=== PATIENT | male | born 1995 | race Caucasian/White ===

== ENCOUNTER 2017-10-25 17:25 | Inpatient (IN) | payer BC ==
[~2017-10-25] VITALS: Ht 175.3 cm; Wt 122.0 kg
--- NOTE | ~2017-10-25 | DS ---
[facility] [address], [place] [address] Draft ADMISSION DATE: 10/25/2017 DISCHARGE DATE: 11/02/2017 FINAL DIAGNOSIS: Acutely ruptured and necrotic appendicitis. PROCEDURE: Laparoscopic converted to open appendectomy (prolonged and difficult). HISTORY OF PRESENT ILLNESS: Aditya is a 22-year-old gentleman from the [facility] area. He traveled over to [place], [place] with some friends for the week. On his way back, he had been feeling bad for about 5 days. He told his friend he just could not make it the additional 3 hours home to [place]. They brought him into our local emergency room here in [place], [place]. Aditya was seen in the emergency room and found to have a retrocecal appendix with the tip of the appendix up near the edge of the liver. He was admitted and hydrated, given pain control and antibiotics. HOSPITAL COURSE: I met with Aditya that following morning and explained to him the location and function of the appendix. His parents had driven during the night to come over from [place]. I explained to Aditya more than likely he would be an open appendectomy given the retrocecal position. Also, because he had been sick for 5 days, I told Aditya to anticipate being in the hospital anywhere from 5-10 days. He went to the operating room that same day for laparoscopic converted to an open appendectomy and indeed it was a prolonged and difficult case. He had a ruptured necrotic appendix in the center of his appendix. We kept him in the hospital on IV fluids and antibiotics. Over several days then his temperature spikes finally went away. He was initially tachycardic and that resolved over a few days and he started to look and feel better and his appetite started to return. He was having small amounts of flatus, but over with clear liquids, he was still having some nausea and several times he vomited. I had to be out of town on that Sunday and in my absence, Dr. Jin was able to see him. By then, he was doing much better, tolerating his liquid diet. He had several bowel movements and was markedly improved. Consequently, Dr. Jin had discharged him to home. DISCHARGE PLANS AND MEDICATIONS: Aditya is going to go back to the [facility] to be with his parents and family. He could follow a diet as tolerated. He can perform his activities of daily living including walking up and down stairs and showering bathing as usual. He should not do PATIENT NAME: ADITYA BERNARD DISCHARGE SUMMARY DATE OF : 95 REPORT #: [id number] PHYSICIAN: MAURISIO SANTAMARIA MD PCP: NO PRIMARY CARE PHYSICIAN REPORT IS CONFIDENTIAL AND NOT TO BE RELEASED WITHOUT AUTHORIZATION [facility] [address] [place] [id number] [place] any heavy pushing, pulling, or lifting over 25 pounds. He does have kaz in place and he will need their family physician or an urgent care clinic or someone in that area to remove those kza. He is welcome to come back and see me in my office, but it is 3 hours away. Any pain medication he was given, was written by Dr. Jin. I had actually discussed this with Aditya and his family multiple days I was going to be gone that Sunday. They had expressed understanding and they had a very good grasp of their situation and wished to proceed as above. MD JIM Marie/DIANELYS /[id number] Copies: ~ PATIENT NAME: ADITYA BERNARD DISCHARGE SUMMARY DATE OF : 95 REPORT #: [id number] PHYSICIAN: MAURISIO SANTAMARIA MD PCP: NO PRIMARY CARE PHYSICIAN REPORT IS CONFIDENTIAL AND NOT TO BE RELEASED WITHOUT AUTHORIZATION
--- NOTE | 2017-10-25 20:37 | NUR ---
PT ARRIVED AT 2010 FROM ED VIA STRETCHER, COOPERATIVE WITH ASSESSMENTS, TOLERATING POPSICLES WELL, NO N/V NO C/O ABD PAIN
--- NOTE | 2017-10-25 21:28 | NUR ---
C/O 7-11/02 ABD PAIN, MEDICATED WITH 0.6MG IV DILAUDID. NO N/V
--- NOTE | 2017-10-26 00:37 | NUR ---
RESTING, EYES CLOSED, NO FURTHER C/O PAIN. NPO FOR AM PROCEDURE
--- NOTE | 2017-10-26 01:39 | NUR ---
0116 - DR SANTAMARIA NOTIFIED VIA PHONE ABOUT PTS TEMP 99.6 ORALLY, [id number] BY MONITOR AND APICAL, R 20, O2 SATS 94% ON ROOM AIR AND PT HAS BEEN SLEEPING WITH HIS HEAD IN A 45 DEGREES, BP 156/112 RIGHT ARM. VITALS RECHECKED LATER AND BP WAS 157/89 P 133 R LEG, 2 COVERS REMOVED, IS GIVEN, PT NPO. NEW ORDERS FOR TYLENOL PO/SUPP FOR FEVER >38.5 AND A 1000CC LITER BOLUS OVER 2H. PT DENIES CP OR SOB, WAS MEDICATED AT THAT TIME FOR C/O ABD PAIN. VOIDED LIGHT BETTY URINE. PARENTS IN ROOM.
--- NOTE | 2017-10-26 03:46 | NUR ---
P119, R20, WORKING ON IS, PT C/O ABD PAIN 12/03. MEDICATED WITH DILAUDID 0.5MG IV. NO N/V, NPO FOR AM PROCEDURE. PARENTS IN ROOM.
--- NOTE | 2017-10-26 05:51 | NUR ---
medicated with Dilaudid 0.5mg IV c.o 6.10 abd pain m dry heaving, will medicate with Zofran 4mg iv
--- NOTE | 2017-10-26 06:13 | NUR ---
PT CURRENTLY AWAKE VISITING WITH PARENTS, DR SANTAMARIA IN ROOM EXAMINING PT. PATIENT HAS BEEN MEDICATED WITH DILAUDID IV Q2-3 HRS SINCE ADMISSION. C/O ABD PAIN WITH GOOD PAIN RELIEF. WAS MEDICATED WITH ZOFRAN EARLIER THIS AM FOR DRY HEAVING, NO N/V, MED EFFECTIVE. HAS VOIDED QS LIGHT BETTY URINE. HAS BEEN NPO SINCE MIDNIGHT. EARLIER THIS AM HAD A TEMP OF 99.6, COVERS REMOVED, TEMP DOWN TO 98.2. TACHYCHARDIC EPISODE, HR BETWEEN 135-140, CURRENTLY DOWN TO 112, BP WAS ELEVATED 156/112, CURRENT BP LOWER NOW, DENIED HERNANDEZ OR LIGHTHEADNESS. RECEIVED 1L BOLUS OF LR, NO ADVERSE REACTION TO ABX. PREOP INSTRUCTIONS FOR POSSIBLE LAP APPY GIVEN, PT STATED UNDERSTANDING
--- NOTE | 2017-10-26 07:30 | NUR ---
PATIENT UP TO THE BATHROOM AND WIPES DONE FOR SURGERY, SCD'S ON AND PATIENT READY FOR SURGERY. HE STATES THAT PAIN IS CURRENTLY TOLERABLE. PARENTS ARE AT BEDSIDE AND DENY ANY QUESTIONS OR CONCERNS.
--- NOTE | 2017-10-26 07:42 | NUR ---
PATIENT TO SURGERY AT THIS TIME VIA STRETCHER
--- NOTE | 2017-10-26 10:04 | NUR ---
pt is currently in surgery, will take vitals upon return. bed linens have been changed
--- NOTE | 2017-10-26 11:14 | NUR ---
10/26/17 1114 Ike Leyva 1054 PT ARRIVES TO PACU, AWAKE ON AND OFF. NOTED SINUS TACHYCARDIA, TACHYCARDIA ALSO REPORTED BY CHEMICAL PROCESS EQUIPMENT OPERATOR DURING CASE. PT DENIES PAIN AND NAUSEA. PT ABLE TO MOVE ALL EXTREMITIES. DRSG C,D,I. JAIMES IN PLACE. IV ABX RESTARTED FROM TRANSFER. 1100 02 DECREASED TO 4L VIA NC. IV DISTAL OCCLUSION, 2ND RN AT BEDSIDE TO RESTART IV. PT TOLERATING WELL. PT C/O BEING TOO HOT, COOL AIR IN PLACE.
--- NOTE | 2017-10-26 12:25 | NUR ---
PATIENT ARRIVED BACK FROM PACU, HE IS ON RA WITH NO C/O SOB. HE DENIES ANY PAIN AT THIS TIME AND HAS AN ABDOMINAL DRESSING THAT IS CDI WITH AN ABD AND TAPE. PATIENT'S RAILS UP X4 AND IV FLUID BACK ON PUMP TUBING. VITALS TAKEN AT THIS TIME AND PARENTS BACK IN THE ROOM WITH THE PATIENT.
--- NOTE | 2017-10-26 12:56 | CONS ---
[facility] [address] [place], [place] [address] Signed DATE OF CONSULTATION: 10/26/2017 CHIEF COMPLAINT: Epigastric abdominal pain. HISTORY OF PRESENT ILLNESS: Aditya is a 22-year-old gentleman, who lives in the [place], [place] area. 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 He had some friends, who have been over in [place] to visit some of their associates. He had been feeling some epigastric abdominal pain about 5 days ago. It seemed to wax and wane, but overall was getting worse. It seemed to be localizing more to the right side. On the way back to [place], he just felt he could not make it, so his friends brought him in to our local emergency room here in [place], [place]. Here, he was tender in the right side with an elevated white count and a specific gravity that was a little bit high on his urine, his ketones were up a little bit as well. Therefore, he had a CT scan of the abdomen and pelvis performed and he has a very thickened appendix starting in the right lower quadrant, but it extends up the medial side of the right colon with the tip all the way up next to the liver. He has a stone about midway in the appendix. The appendix was quite thickened and fluid-filled with some periappendiceal inflammation. Consequently, I was asked to admit him last night as a general surgeon on-call. In the meantime, he has received antibiotics, IV fluids, and pain control. Overall, he is feeling a little better. In the meantime, his parents were able to drive over from [place] and they have been here since about 4 in the morning. PAST MEDICAL HISTORY: Asthma as a child, for which he was mostly outgrown. PAST SURGICAL HISTORY: Left shoulder labrum repair. SOCIAL HISTORY: He does not smoke. He drinks socially. He does use some marijuana. 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 He has no primary care provider. His mother is Renetta Bernard at [phone]. They use the [facility] on [address] at [place] in [place], [place]. FAMILY HISTORY: Dad has sleep apnea. Mom is overweight. REVIEW OF SYSTEMS: Aditya had 10 systems reviewed. We talked about his asthma and then the shoulder. ALLERGIES: Electronically Signed By: MAURISIO SANTAMARIA MD 10/26/17 1256 PATIENT NAME: ADITYA BERNARD CONSULTATION DATE OF : 95 REPORT #: [id number] PHYSICIAN: MAURISIO SANTAMARIA MD PCP: NO PRIMARY CARE PHYSICIAN REPORT IS CONFIDENTIAL AND NOT TO BE RELEASED WITHOUT AUTHORIZATION [facility] [address], [place] [address] Signed Penicillin. MEDICATIONS: Albuterol p.r.n. PHYSICAL EXAMINATION: VITAL SIGNS: His blood pressure is 148/85, his heart rate is 115, respiration 16, his temperature is 98.2 degrees. He is 93% on room air. He is 5 feet 9 inches at 122 kg. GENERAL: Aditya is a 22-year-old young man, lying supine in his hospital bed. His parents are in the room. He does not appear systemically ill or toxic. LUNGS: Generally clear to auscultation bilaterally. HEART: Little tachycardic. ABDOMEN: Obese, but soft. He just received some Dilaudid little while ago, so he has just minimal tenderness on the right side. LABORATORY DATA: His white blood cell count is 22, his neutrophil is 88, bands are 4, hemoglobin is 15. BUN 14, creatinine 1.0. Liver function tests are negative. Albumin is 4.5. His amylase is negative. His urine specific gravity is slightly up at 1.029. He also had some ketones in the urine. RADIOGRAPHIC STUDIES: A CT scan of the abdomen and pelvis is reviewed, both the images and the report. He clearly has a very long thickened appendix, probably 12 cm long at least couple centimeters wide. It is fluid-filled. There was a stone in the midportion with some periappendiceal inflammation. ASSESSMENT AND PLAN: Aditya is a 22-year-old gentleman, who presents with appendicitis. He has been admitted, given IV fluids, antibiotics, and resuscitated in general. I explained to Aditya the findings as well as the location and function of the appendix. We have discussed laparoscopic versus open appendectomy. I have also reviewed the expected intraop and postop course. Given the fact he has been sick for 5 days, we will see how this surgery goes and it may get converted to an open. In addition, we did review the risks including, but not limited to bleeding, infection, scarring, change in contour of the skin, damage to bowel, appendiceal stump leak, postoperative intraabdominal abscess, incisional hernias, and other unforeseen comorbidities. He had expressed understanding and wishes to proceed. Maurisio Santamaria MD Electronically Signed By: MAURISIO SANTAMARIA MD 10/26/17 1256 PATIENT NAME: ADITYA BERNARD CONSULTATION DATE OF : 95 REPORT #: [id number] PHYSICIAN: MAURISIO SANTAMARIA MD PCP: NO PRIMARY CARE PHYSICIAN REPORT IS CONFIDENTIAL AND NOT TO BE RELEASED WITHOUT AUTHORIZATION [address] [place] [address] Signed [facility]/MODL /[id number] cc: Maurisio Santamaria MD Copies: MAURISIO SANTAMARIA MD ~ Electronically Signed By: MAURISIO SANTAMARIA MD 10/26/17 1256 PATIENT NAME: ADITYA BERNARD CONSULTATION DATE OF : 95 REPORT #: [id number] PHYSICIAN: MAURISIO SANTAMARIA MD PCP: NO PRIMARY CARE PHYSICIAN REPORT IS CONFIDENTIAL AND NOT TO BE RELEASED WITHOUT AUTHORIZATION
[2017-10-26] MEDS ORDERED: AMPHETAMINE SAL10 MG PO (12:57)
--- NOTE | 2017-10-26 13:17 | NUR ---
PATIENT TOLERATING SIPS OF WATER, 2ND SET OF POST OP VITALS COMPLETE. PATIENT HAS NO C/O PAIN AT THIS TIME.
--- NOTE | 2017-10-26 13:43 | NUR ---
PT BACK FROM SURGERY, IN BED MOSTLY AWAKE ABLE TO CARRY ON CONVERSATION. HIS PARENTS IN RM UP FROM [place]. EXTENDED A BLESSING, PT THANKED ME FOR VISITING. WILL CONTINUE TO FOLLOW NEEDED
--- NOTE | 2017-10-26 14:15 | NUR ---
SPOKE WITH PATIENT AND PARENTS IN ROOM. PATIENT IS POST-OP, FALLS ASLEEP EASILY. PARENTS ANSWERED MOST QUESTIONS. PATIENT LIVES IN [place], WAS HERE WITH FRIENDS WHEN HE FELT ILL. STATES THEY ARE STAYING HERE UNTIL HIS DISCHARGE AND THEY WILL DRIVE HIM BACK TO [place]. HE WILL STAY WITH THEM UNTIL HE IS READY TO RETURN TO HIS PLACE. HE HAS A PCP IN [place]. DISCUSSED NORMAL POST-OP COURSE. THEY STATE UNDERSTANDING. NO KNOWN BARRIERS AT THIS TIME TO DISCHARGE WITH PARENTS.
--- NOTE | 2017-10-26 14:20 | NUR ---
PATIENT C/O 5/10 ABDOMINAL PAIN AT THIS TIME, PATIENT GIVEN 1MG OF DILAUDID IV NOW AND ASSISTED UP TO THE BATHROOM TO VOID, PATIENT ABLE TO VOID WITHOUT ANY DIFFICULTIES MISSING THE HAT.
--- NOTE | 2017-10-26 15:28 | NUR ---
PATIENT'S LAST SET OF SURGERY VITALS COMPLETED AT THIS TIME, PATIENT DENIES ANY PAIN AT THIS TIME AND HAS BEEN RESTING IN BED. HE DENIES ANY NEEDS AT THIS TIME HAS NO C/O SOB. DRESSINGS TO ABDOMEN ARE INTACT AND NO DRAINAGE NOTED.
--- NOTE | 2017-10-26 15:35 | NUR ---
PATIENT ADVANCED TO A FULL LIQUID DIET AT THIS TIME, DOCTOR ROSALIO UPDATED ON PATIENT STATUS AND THAT SHE HAS PASSED GAS. DRESSINGS X4 TO ABDOMEN INTACT.
--- NOTE | 2017-10-26 15:49 | OR ---
[facility] [address] [place], [place] [address] Signed DATE OF OPERATION: 10/26/2017 SURGEON: Maurisio Santamaria MD PREOPERATIVE DIAGNOSIS: Acute appendicitis. POSTOPERATIVE DIAGNOSIS: Acute ruptured and necrotic appendicitis. PROCEDURE PERFORMED: Laparoscopic converted to open appendectomy (prolonged and difficult at approximately 2 hours). ESTIMATED BLOOD LOSS: Minimal. FINDINGS: Aditya had a retrocecal appendix consistent with his CT scan findings. Indeed, tip of the appendix was next to the liver's edge. It was necrotic and ruptured in midportion and there was an appendicolith present. In some cases, we can mobilize the entire right colon laparoscopically and access the retrocecal appendix. However, on this occasion, it was not possible due to body habitus. We therefore converted to a periumbilical midline incision with an additional nurse scrubbed in to help hold retractors and we were able to follow the appendix retrograde all the way up to the tip and very carefully removed it from the surrounding mesoappendix with the help of a cautery because it was so inflamed that the blood vessels I am sure were thrombosed. INDICATIONS FOR PROCEDURE: Aditya is a 22-year-old young man, who lives in the [place], [place] area. He and some friends have been over to [facility]. They were on the way back and Aditya said he had been feeling ill for about 5 days. He had a lot of periumbilical and epigastric abdominal pain. There was some nausea, vomiting, diarrhea. He said he just did not feel he could make it all the way back to [place], so his friends brought him into our local emergency room here in [place], [place]. In the emergency room, he was tender in the upper abdomen and white count was elevated at 22,000. Liver function tests were fine. Amylase fine. He had some elevated ketones and slightly elevated urine specific gravity. Consequently, he had a CT scan of the abdomen and pelvis performed. The CT scan showed very thickened appendix, probably 2 cm wide and about 12 cm long. There was fluid in the appendix and there was periappendiceal inflammation. It seemed to be in Electronically Signed By: MAURISIO SANTAMARIA MD 10/26/17 1549 PATIENT NAME: ADITYA BERNARD OPERATIVE REPORT DATE OF : 95 REPORT #: [id number] PHYSICIAN: MAURISIO SANTAMARIA MD PCP: NO PRIMARY CARE PHYSICIAN REPORT IS CONFIDENTIAL AND NOT TO BE RELEASED WITHOUT AUTHORIZATION [facility] [address] [place], [place] [address] Signed the retrocecal position with the tip near the liver edge. There was an appendicolith in the midportion of the appendix. I was asked to admit Aditya overnight as a general surgeon on-call. He had received IV fluids, pain control, and antibiotics. In the morning, I had met with Aditya and his mother and father, who drove over in the middle of the night to be here this morning. We had a long discussion regarding his findings along with the usual position of the appendix along with the usual function of the appendix. We had discussed laparoscopic versus open appendectomy. He is very aware that 97% of time we can do them laparoscopically. However, I warned them given his 5 days of symptoms plus the CT scan findings that he had a high likelihood of being converted to an open procedure. We also discussed the expected postoperative course. They are aware of the risk including, but are not limited to bleeding, infection, scarring, change in contour of the skin, damage to bowel, appendiceal stump leak, postoperative intraabdominal abscess, incisional hernias, and other unforeseen comorbidities. Aditya had expressed understanding and wished to proceed. PROCEDURE NOTE: Aditya was taken into our operating room and placed in the supine position under general endotracheal tube anesthesia. He was on preoperative antibiotics along with subcutaneous heparin. SCDs were utilized. Florian catheter was inserted with return of clear yellow urine. He was then prepped and draped in the usual sterile fashion. We placed our Uli trocar through a standard vertical supraumbilical incision and as we looked around the abdomen, he had quite a bit of adipose tissue and not a lot of space between the abdominal wall, his omentum, his intestine, and his liver. We went ahead and placed our suprapubic 5-mm trocar as well as our 10/12 mm trocar in the right upper quadrant. We took few minutes and worked our way down the anterior taenia coli of the right colon. We went past the terminal ileum and we did visualize the base of the appendix, which was healthy, but it did travel retrocecal. We made some efforts to see if we could mobilize the right colon and it was simply beyond reasonable to do that laparoscopically. Consequently, we aborted our laparoscopic case and converted to an open incision. We made a standard periumbilical midline incision knowing we are going to have to travel cephalad towards the hepatic flexure in order to remove that appendix. In due time, I had to extend that incision about 3 cm or so cephalad in order to ultimately reach the tip of the appendix. Once we had the incision developed sharply with our cautery, we had an additional nurse scrub in, we used large Molina retractors and later [place] with moist gauze to hold the small bowel out of the way. Unfortunately, he had a fairly mobile cecum. We were able to bring that up into the incision and we divided the base of the appendix from the cecum between Pean clamps and #0 Vicryl ties. The appendiceal stump was gently cauterized. After this, we worked our way in a retrocecal fashion up towards the hepatic flexure and I could feel the tip of the appendix up underneath the hepatic flexure. We very carefully and slowly followed the base of the appendix with the cautery and we held ourself close to the appendix and used the cautery to follow the appendix all the way up past the area where it was Electronically Signed By: MAURISIO SANTAMARIA MD 10/26/17 1549 PATIENT NAME: ADITYA BERNARD OPERATIVE REPORT DATE OF : 95 REPORT #: [id number] PHYSICIAN: MAURISIO SANTAMARIA MD PCP: NO PRIMARY CARE PHYSICIAN REPORT IS CONFIDENTIAL AND NOT TO BE RELEASED WITHOUT AUTHORIZATION [facility] [address] [place], [place] [address] Signed necrotic and ruptured, ultimately to the tip. It was quite difficult and took a significant amount of time, but in the end, we were very confident that the entire appendix was removed all the way to the tip. It left a channel and the fat underneath. Once we were done; however, it was quite hemostatic, the area was copiously irrigated and suctioned out until clear. We did not feel a drain was necessary at that time. We went ahead and removed all of our moist laps, brought the small bowel down into the pelvis and let the right colon set back over into the right gutter. We had copiously irrigated both behind and in front of the right colon with warm antibiotic saline solution. After this, the small bowel was allowed to come over from the left side of the abdomen to the right and we covered that with the omentum. We then closed the midline fascia with multiple interrupted [id number] #1 PDS sutures and again, that took additional time and effort due to the subcutaneous adipose tissue. After this, we injected local anesthetic into his incision as well as the trocar sites. We had initially used our laparoscopic suturing device to close the fascia of the right subcostal 10/12 mm trocar site with good effect. After injecting local anesthetic into the incisions, they were irrigated and suctioned out until clear. The dermis of each incision was closed with multiple interrupted #3-0 subcuticular Monocryl sutures. The skin edges were reapproximated with kaz. Dry gauze and tape were then applied. Aditya's Florian catheter was left in place. He was awakened from his anesthesia, extubated in the OR, and taken to recovery room in stable condition. Maurisio Santamaria MD [facility]/MODL /[id number] cc: Maurisio Santamaria MD Copies: MAURISIO SANTAMARIA MD ~ Electronically Signed By: MAURISIO SANTAMARIA MD 10/26/17 1549 PATIENT NAME: ADITYA BERNARD OPERATIVE REPORT DATE OF : 95 REPORT #: [id number] PHYSICIAN: MAURISIO SANTAMARIA MD PCP: NO PRIMARY CARE PHYSICIAN REPORT IS CONFIDENTIAL AND NOT TO BE RELEASED WITHOUT AUTHORIZATION
--- NOTE | 2017-10-26 17:10 | NUR ---
PATIENT C/O ABDOMINAL PAIN 07/03, PATIENT GIVEN 1MG OF DILAUDID IV AT THIS TIME.
--- NOTE | 2017-10-26 17:54 | NUR ---
PATIENT RESTING WITH EYES CLOSED. RESPIRATIONS EVEN UNLABORED AT THIS TIME. PATIENT REMAINS ON RA WITH O2 SATURATIONS AT 98%
--- NOTE | 2017-10-26 18:12 | NUR ---
pt is resting in bed safely with call light in reach. pt did not need anything at the moment
--- NOTE | 2017-10-26 19:05 | NUR ---
BEDSIDE REPORT RECEIVED FROM OFFGOING RN. PT ASSISTED TO BATHROOM AND BACK TO BED. PT REPORTS BEING COLD. WARM BLANKET PROVIDED. PT DENIES OTHER NEEDS AT THIS TIME. CALL LIGHT WITHIN REACH.
--- NOTE | 2017-10-26 21:00 | NUR ---
PT ASSESSMENT COMPLETE. PT STATES THAT PAIN IS WELL CONTROLLED WITH PAIN MEDICATION AT THIS TIME. DRESSING TO ABD C/D/I. BT'S HYPOACTIVE, ABD TENDER TO PALPATION. PT DENIES PASSING FLATUS. PT PROVIDED WITH WATER FOR 8 HOURS. PT DENIES OTHER NEEDS AT THIS TIME. CALL LIGHT WITHIN REACH, PARENTS AT BEDSIDE.
--- NOTE | 2017-10-26 22:00 | NUR ---
VITALS AND I&OS DONE AND CHARTED. LET HIS RN LES KNOW OF B/P AND HEART RATE. BEDSIDE TABLE AND CALL LIGHT WITHIN REACH.
--- NOTE | 2017-10-26 22:41 | NUR ---
MEDICATED WITH DILAUDID 0.3MG PO C/O ABD PAIN
--- NOTE | 2017-10-27 00:30 | NUR ---
PT RESTING WITH EYES CLOSED. RESPIRATIONS EVEN AND UNLABORED. PT APPEARS TO BE SLEEPING. CALL LIGHT WITHIN REACH.
--- NOTE | 2017-10-27 01:34 | NUR ---
PT UTILIZES CALL LIGHT, REQUETS TO USE BATHROOM. PT ASSISTED TO BR AND BACK TO BED. PT RATES PAIN 7.5-9. PRN DILAUDID 1 MG ADMINISTERED. PT STATES THAT HE CAN FEEL THEMEDICATION WORKING. NEW ICE PACK PROVIDED. PT DENIES FURTHER NEEDS AT THIS TIME. CALL LIGHT WITHIN REACH.
--- NOTE | 2017-10-27 03:27 | NUR ---
CALL LIGHT ANSWERED, PRN PAIN MEDICATION ADMINISTERED FOR PT REPORTED 7/10 PAIN IN ABD. NO ADDL REQUESTS AT THIS TIME, CALL LIGHT IN REACH.
--- NOTE | 2017-10-27 04:15 | NUR ---
PT UTILIZES CALL LIGHT, REQUESTS MORE WATER. STATES THAT PAIN IS WELL CONTROLLED BY LATEST PRN DILAUDID DOSE. PT DENIES NAUSEA, SOB. PT DEMONSTRATES DEEP BREATHING APPROPRIATELY. PT ASSESSMENT COMPLETE. DRESSING TO ABD C/D/I, BT'S HYPOACTIVE. PT CONTINUES TO REPORT TENDERNESS UPON PALPATION. ABD FIRM. PT DENIES OTHER NEEDS AT THIS TIME. CALL LIGHT WITHIN REACH.
--- NOTE | 2017-10-27 05:43 | NUR ---
medicated wtih dilaudid 1mg iv c/o 8-12/03 abd pain. working IS. no other requests
--- NOTE | 2017-10-27 06:36 | NUR ---
PT RESTING IN BED WITH EYES CLOSED AFTER LAST DOSE OF PAIN MEDICATION. RESPIRATIONS EVEN AND UNLABORED. NO S/SX OF DISTRESS NOTED. PT APPEARS TO BE SLEEPING. PT DOES NOT WAKE WHILE OFFICE CORRESPONDENT AT BEDSIDE.
--- NOTE | 2017-10-27 07:05 | NUR ---
REPORT RC'D FROM FIRE PROTECTION EQUIPMENT TECHNICIAN NURSE. PT RESTING IN BED AND REQUESTING PAIN MEDICATION FOR PAIN 11/02. IV DILAUDID TO ELISA GIVEN. DENIES OTHER NEEDS. CALL LIGHT WITHIN REACH.
--- NOTE | 2017-10-27 08:00 | NUR ---
PT RESTING IN BED COMFORTABLY, 5/10 AFTER 1MG DILAUDID. PT A&O X3 AND RESPONDING APPROPRIATLY. PT NOTED TO BE TACHYCARDIC. RESPIRATIONS EVEN AND UNLABORED, LUNG SOUNDS CLEAR THROUGHOUT, NO COUGH. ABD MILDLY DISTENDED, FIRM, TENDER TO PALPATION, MIDLINE SITE COVERED, C/D/I. PT REPORTS NO BM OR PASSING FLATULENCE, DUE TO VOID. SCD IN PLACE. IV SITE PATENT, WNL. MORPHINE SENIOR QUALITY METHODS SPECIALIST TO BE STARTED PER PROVIDER. PT DUE TO AMBULATE, HAVE DRESSING REMOVED, AND SHOWER.
--- NOTE | 2017-10-27 09:30 | NUR ---
MORPHINE JUMP IRON MACHINE PRESSER STARTED AT THI TIME. EDUCATION PROVIDED ON USE AND SIDE EFFECTS. ALL QUESTIONS ANSWERED. PT VERBALIZED UNDERSTANDING OF USE AND SIDE EFFECTS. CURRENT PAIN 10/02. JUMP IRON MACHINE PRESSER BUTTON WITHIN REACH. CALL LIGHT WITHIN REACH. WILL CONTINUE TO MONITOR.
--- NOTE | 2017-10-27 11:24 | NUR ---
pt is resting in bed safely with call light in reach. nurse is in room with pt starting an IV
[2017-10-27] MEDS ORDERED: OMEGA 3 FISH O1 EACH PO (11:57)
--- NOTE | 2017-10-27 12:00 | NUR ---
NO ACUTE CAHNGES. PT REPORTS PAIN CONSISTANTLY 5/10 WITH REBAR WORKER USE. PROVIDER NOTIFIED. PER DR. SANTAMARIA, 1-2 MG ATIVAN QP6 NEEDED FOR AGGITATION OR ANXIETY. EDUCATION PROVIDED ON REBAR WORKER USE AND NEW MEDICATION USE AND POSSIBLE SIDE EFFECTS, PT VERBALIZED UNDERSTANDING, ALL QUESTIONS ANSWERED. WILL CONTINUE TO MONITOR. CONTINUOUS PULSE OX IN PLACE AND NOTED TO 95% ON ROOM AIR.
--- NOTE | 2017-10-27 12:01 | NUR ---
Med rec completed.
--- NOTE | 2017-10-27 12:21 | NUR ---
ICE PROVIDED TO PT. MIDLINE SURGICAL SITE OPEN TO AIR, CURT IN PLACE, WELL APPROXIMATED, NO REDNESS, WARMTH, DRAINAGE, OR EDEMA. PT DUE TO AMBULATE AND SHOWER.
--- NOTE | 2017-10-27 14:35 | NUR ---
PT TO AMBULATE IN HALLWAY AND HAVE A SHOWER.
--- NOTE | 2017-10-27 15:01 | NUR ---
PT AMBULATED HALLWAY W/O DIFFICULTY, SBA, TOLERATED WELL. DENIES LIGHTHEADEDNESS, DIZZINESS, FEELING UNSTEADY, OR ANY ADDITIONAL CONCERNS. PT ASSISTED TO SHOWER AT THIS TIME.
--- NOTE | 2017-10-27 17:53 | NUR ---
pt walked 4 laps around the hallway. pt is now in bed resting safely with call light in reach
--- NOTE | 2017-10-27 18:37 | NUR ---
PT CONTINUES TO BE ON 250 Q8H FLUID RESTRICTION. NO BM, NO FLATULENCE, VOIDING CONCENTRATED URINE, REPORTS DIFFICULTY STARTING STREAM, DENIES PAIN, BLADDER SCAN SHOWS NO RESIDUAL. PT A&O X3, RESPONDING APPROPRIATELY, PT REPORTS AGGITATION AT BASELINE, MONITOR FOR INCREASED ANXIETY, PRN ATIVAN NEEDED. PAIN MANAGEMENT ONGOING, MORPHINE ASSISTANT DIRECTOR OF FINANCIAL AID PUMP. IV ABX ORDERED. D5LR @100 ML/HR. MONITOR IV SITES FOR PATENCY. LUNGS SOUNDS CLEAR BUL AND DIMINISHED IN BLL, ENCOURAGE IS USE, PT UP TO CHAIR AND AMBULATING, TOLERATING WELL. DENIES NAUSEA, ABD MILDLY DISTENDED, FIRM, HYPOACTIVE BOWEL TONES, TENDER TO PALPATION, MIDLINE AND RIGHT ABDOMINAL SURGICAL SITE SUPERVISOR FUNCTIONAL TESTING, CURT IN PLACE, WELL APPROXIMATED, NO REDNESS, EDEMA, DRAINAGE, OR WARMTH. EDEMA NOTED IN BLE, SCDS IN PLACE.
--- NOTE | 2017-10-27 19:07 | NUR ---
REPORT RECEIVED FROM JAM ALARCON. PT RESTING IN BED STATES PAIN IS TOLERABLE. RR16 ,PT DENIES NAUSEA,VOMITING OR SOB. CALL LIGHT IN REACH AND FAMILY AT BEDSIDE.
--- NOTE | 2017-10-27 19:45 | NUR ---
PT RESTING IN BED CALL LIGHT IN REACH NO NEEDS VOICED, RR 16. PT DENIES SOB, NAUSEA/VOMITING AND STATES PAIN IS TOLERABLE.
--- NOTE | 2017-10-27 20:52 | NUR ---
fresh ice water provided pt agrees to sip slowly and is aware that this must last 8hrs. Call light in [facility] adn family at bedside. no further requests or concerns voiced at this time.
--- NOTE | 2017-10-27 21:45 | NUR ---
PT UP AMBULATING HALLS WITH STEADY GAIT AND STATES PAIN IS TOLERABLE. PT REPORTS IV LINE KINKING SO IV TUBING TAPED INTO POSITION TO KEEP LINE PATENT.
--- NOTE | 2017-10-27 22:50 | NUR ---
PT RESTING IN BED, EYES CLOSED, RR 16 PT APPEARS TO BE SLEEPING COMFORTABLY. SCD'S IN PLACE. CALL LIGHT IN REACH.
--- NOTE | 2017-10-27 23:45 | NUR ---
PT RESTING IN BED, EYES CLOSED, RR 16. PT APPEARS TO BE SLEEPING COMFORTABLY. CALL LIGHT IN REACH. SCD'S IN PLACE.
--- NOTE | 2017-10-28 00:45 | NUR ---
PT RESTING IN BED, ALERT TO VOICE, BT'S HYPOACTIVE PT DENIES NAUSEA VOMITING AND STATES PAIN IS TOLERABLE. CALL LIGHT IN REACH AND NO NEEDS/CONCERNS VOICED. PT WAS REMINDED TO ONLY USE COLOR CHECKER PUMP NEEDED FOR PAIN INCREASED USE CAN LEAD TO CONSTIPATION, PT VERBALIZED UNDERSTANDING.
--- NOTE | 2017-10-28 00:54 | NUR ---
V/S AND I&O DONE AND CHARTED.
--- NOTE | 2017-10-28 01:58 | NUR ---
pt resting in bed respirations even and unlabored. pt states "i'm starting to hurt again so i'm about to use the pain pump" GAME AGENT pump controler and call light in reach. Pt denies nausea,vomiting and states GAME AGENT has adonis managing pain well. RR 16.
--- NOTE | 2017-10-28 03:00 | NUR ---
Pt resting in bed, alert to voice and states pain is well tolorated with PRN EXTERIOR DOOR INSTALLER pump. pt encouraged to only press botton when pain is becoming intolerable. BT's have remained hypoactive and pt has not passed flatus this shift. Last bm on 10/25/17. pt is belching and denies nausea/vomiting. pt voiding dark yellow Q.S. urine. Pt tolorates 250mls of water q8hrs and states he would like to see his oral fluids increased. pt was up ambulating in halls earlier in shift and tolorated well with only one person stand by assist. pt has 2 IV's. 24 GA to left anterior wrist and 20 ga to Right posterior hand and continues iv antibiotics as scheduled. pt did desat to 90% on RA in night while sleeping so was placed on 1lpnc and maintained sats in mid 90's thereafter. incisions to abd remain dianna and well approximated with no s/sx's of infection.
--- NOTE | 2017-10-28 04:56 | NUR ---
PT RESTING IN BED ALERT TO VOICE, CALL LIGHT,H20 AND ASSISTANT MEN'S SOCCER COACH PUMP REMOTE IN REACH. PT STATES PAIN HAS BEEN WELL MANAGED WITH ASSISTANT MEN'S SOCCER COACH PUMP THROUGHOUT THE NIGHT. PT DENIES PASSING ANY FLATUS THIS SHIFT BUT ALSO DENIES NAUSEA/VOMITING. BT'S REMAIN HYPOACTIVE AND DISTANT/MUFFLED. PT AGREES TO INCREASE ACTIVITY TODAY TOLERABLE WITH STANDBY NURSE ASSIST.
--- NOTE | 2017-10-28 07:17 | NUR ---
PT IN BED. RECIEVED BEDSIDE REPORT FROM JAM SORENSON. PT'S ABDOMEN INCISION TO MIDLINE, SMALL INCISION TO RIGHT UPPER QUADRANT, AND TO SUPRAPUBIC AREA HAVE CURT INTACT, INCISIONS WNL.
--- NOTE | 2017-10-28 08:28 | NUR ---
PT SITTING UP IN RECLINER. RATES PAIN TO ABDOMEN 3/10. LUNNGS DIMINISHED THROUGHOUT, PT USING INSENTIVE SPIROMETER, EDUCATED REGARDING INSENTIVE SPIROMETER USE, DEEP BREATH AND COUGH. PT VERBALIZED UNDERSTANDING. ABDOMINAL INCISIONS WNL, NO DRAINAGE NOTED. BOWEL TONES HYPOACTIVE X 4 QUADRANTS. PT REPORTS THAT HE HAS NOT PASSED GAS SINCE SURGERY.
--- NOTE | 2017-10-28 08:39 | NUR ---
PT C/O NAUSEA. GAVE ZOFRAN 8 MG IV PRN.
--- NOTE | 2017-10-28 10:00 | NUR ---
PT AMBULATED IN HALLS, AROUND "LOOP" X 5, AMBULATED WITH HIS PARENTS. STEADY ON FEET.
--- NOTE | 2017-10-28 10:06 | NUR ---
patient walked with his parents and then called to be set up in his room, he wanted to be on oxygen and not wear the O2 sensor on because of the beeping, this INDUSTRIAL HEALTH AND SAFETY PROFESSOR reported the nurse will be in shortly to set him up with his IV and let him know about the oxygen
--- NOTE | 2017-10-28 10:30 | NUR ---
PUT O2 sensor back on patient and set him up for a rest before lunch
--- NOTE | 2017-10-28 11:07 | NUR ---
pt is sitting up with feet elevated and call light in reach. pt asked for an ice pack for abdomen. pt was concerned about IV site on wrist, Nurse Lindsay came and assessed it, and said it was stil WNL.
--- NOTE | 2017-10-28 12:22 | NUR ---
PT AMBULATING IN HALLS WITH HIS MOTHER. STEADY ON FEET, TOLERATING AMBULATION WELL.
--- NOTE | 2017-10-28 13:26 | NUR ---
PT SITTING UP IN RECLINER. RATED PAIN TO ABDOMEN 3/10. PINEAPPLE PLANTATION MANAGER CARTRIDGE REPLACED, PINEAPPLE PLANTATION MANAGER SETTINGS CHECKED BY SONIA Alcantar RN. PT DENIED NEEDS AT THIS TIME.
--- NOTE | 2017-10-28 14:36 | NUR ---
pt is reclining in chair with feet elevated and call light in reach. pt did not need anything at the moment
--- NOTE | 2017-10-28 15:02 | NUR ---
PT SITTING UP IN RECLINER WITH LEGS ELEVATED. SLEEPING SOUNDLY, ON 2L O2, OXYGEN SATURATION LEVEL 97%. PT AROUSED TO VERBAL STIMULI. RATED ABDOMINAL PAIN 2/10, DENIED NAUSEA. BOWEL TONES HYPOACTIVE, PT DENIES PASSING FLATUS.
--- NOTE | 2017-10-28 16:54 | NUR ---
pt showered with no assistance and only needed set up help. pt then returned to chair and is sitting up with call light in reach
--- NOTE | 2017-10-28 17:01 | NUR ---
PT SITTING UP IN BED, VISITING WITH SISTER, MOM, AND DAD. PERSONAL SUPPLIES AND CALL LIGHT IN REACH.
--- NOTE | 2017-10-28 18:19 | NUR ---
PT UP WITH STANDBY ASSIST FOR HELP WITH TUBES, SCDs, PULSE OX, THEN INDEPENDANT. PT AMBULATED IN HALLS, FAMILY MEMBER AT SIDE, TOLERATED WELL. PT TOOK SHOWER THIS SHIFT. HAS MORPHINE TEMPERING KILN TENDER, PT REPORTED THIS IS COVERING PAIN WELL. BOWEL TONES HYPOACITVE, PT DENIES PASSING FLATUS. LUNGS DIMINISHED, PT USED INSENTIVE SPIROMETER FREQUENTLY, AND DID DEEP BREATHING AND COUGHING THROUGHOUT SHIFT. PT ON CONTINUOUS PULSE OX, DESATURATED TO MID 80s WHEN ASLEEP, PLACED ON 2L 02 VIA NC WHEN SLEEPING. ON RA OTHERWISE. PT HAS D5LR INFUSING AT 100 CC/HR. PT NPO EXCEPT 250 CC CLEAR LIQUIDS Q 8 HOURS. PT DID HAVE ONE EPISODE OF NAUSEA THIS AM, RECIEVED PRN ZOFRAN, WHICH PT REPORTED RESOLVED THIS. MIDLINE INCISION AND SCOPE INCISIONS TO RUQ ABD, AND SUPRAPUBIC MIDLINE AREA WNL, CURT INTACT.
--- NOTE | 2017-10-28 18:37 | NUR ---
pt is resting in bed safely with call light in reach. pt asked for an ice pack
--- NOTE | 2017-10-28 20:30 | NUR ---
PT WAS UP DOING LAPS IN WALLACE WITH SLOW BUT STEADY GAIT. PT DENIES NAUSEA AND STATES PAIN IS TOLERABLE. 250MLS FRESH ICE WATER GIVEN. CALL LIGHT IN REACH AND PT NOW BACK RESTING IN BED AND STATES HE IS COMFORTABLY.
--- NOTE | 2017-10-28 21:20 | NUR ---
ROUNDED CHARGE. PATIENT IS RESTING IN BED WITH MOTHER IN THE ROOM. PATIENT DENIES ANY COMMENTS, QUESTIONS, OR CONCERNS. NO NEEDS NOTED. CALL LIGHT IN REACH.
--- NOTE | 2017-10-28 22:05 | NUR ---
PT RESTING IN BED, DENIES N/V OR SOB AND STATES PAIN IS TOLERABLE. FAMILY AT BEDSIDE. CALL LIGHT AND CITY AUDITOR REMOTE IN REACH. NO CONCERNS OR REQUESTS VOICED.
--- NOTE | 2017-10-29 00:10 | NUR ---
PT RESTING SUPINE IN BED, EYES CLOSED AND RR 16. PT APPEARS TO BE SLEEPING COMFORTABLY, CALL LIGHT AND SENIOR ENGINEERING ASSOCIATE PUMP IN REACH. FAMILY AT BEDSIDE.
--- NOTE | 2017-10-29 02:29 | NUR ---
PT REPORTS NAUSEA AFTER GETTING UP TO USE RESTROOM. ZOFRAN 8MG PRN IV ADMINISTERED. BT'S REMAIN HYPOACTIVE AND PT DENIES FLATUS. CALL LIGHT AND SHOE ASSOCIATE PUMP REMOTE IN REACH. PT STATES HIS PAIN IS TOLERABLE. FAMILY AT BEDSIDE.
--- NOTE | 2017-10-29 04:47 | NUR ---
PT RESTING IN BED WITH 2LPNC SATTING 94% ON 2LPNC. RR 16. PT DENIES NAUSEA AND STATES PAIN IS TOLERABLE. CALL LIGHT IN REACH AND FAMILY AT BEDSIDE.
--- NOTE | 2017-10-29 06:30 | NUR ---
IN TO SEE PT. PT LAYING IN BED STATES "I THREW UP" PT HAS APPROX 200MLS GREEN EMISIS IN EMISIS BAG AND SOME EMISIS NOTED TO BEDDING AND CLOTHING. PHENERGAN 12.5MG ADMINISTERED SLOW IVP. DR SANTAMARIA AWARE AND IN TO SEE PATIENT. PT ASSISTED TO RESTROOM AND BEDDING CHANGED. NO FURTHER CONCERNS OR REQUESTS VOICED.
--- NOTE | 2017-10-29 07:00 | NUR ---
REPORT RECEIVED FROM JAM FERRARO. PT RESTING IN BED STATES HIS PAIN HAS BEEN INCREASED TODAY ALONG WITH AN INCREASE IN NAUSEA THAT IS BROUGHT ON WITH CHANGE IN POSITION WHICH HAS LED HIM TO BE LESS ACTIVE TODAY. PT STATES HIS PAIN IS CURRENTLY TOLERABLE AND HIS NAUSEA HAS SUBSIDED. SCD'S IN PLACE, INCISION REMAINS WELL APPROXIMATED. CALL LIGHT IN REACH AND FAMILY AT BEDSIDE. PT WAS PROVIDED WITH TOOTHET PER REQUEST FOR "PUKEY TASTING BREATH".
--- NOTE | 2017-10-29 07:48 | NUR ---
PT SITTING UP IN RECLINER, DROWSY, MOM IN ROOM. PT RATED PAIN TO ABDOMEN 1/10. RECIEVED REPORT IN ROOM FROM JAM SORENSON. PT HAS PERSONAL SUPPLIES AND CALL LIGHT IN REACH.
--- NOTE | 2017-10-29 08:13 | NUR ---
tiffanie is in the chair, he is NPO, he needed no other assistance at the time, his mom is in the room
--- NOTE | 2017-10-29 08:59 | NUR ---
PT SLEEPING RECLINED IN RECLINER, IS ON 2L O2 VIA NC, OXYGEN SATURATION LEVEL 96%. PT AROUSED TO VERBAL STIMULI. SCOPE SITES AND MIDLINE INCISION TO ABDOMEN WNL, RENAE, CURT INTACT, NO DRAINAGE NOTED. PT REPORTED PAIN WELL CONTROLLED WITH FUNNEL SETTER, RATED PAIN TO ABDOMEN 2/10. BOWEL TONES HYPOACTIVE X 4 QUADRANTS, PT DENIES PASSING FLATUS.
--- NOTE | 2017-10-29 09:49 | NUR ---
PATEINT IN CHAIR, VS DONE, NEEDE DNO OTHER ASSISTANCE AT THE TIME
--- NOTE | 2017-10-29 10:51 | NUR ---
PT SITTING UP IN RECLINER, WATCHING TV. REPOPRTS PAIN IS WELL CONTROLLED, DENIED PASSING GAS. PT DENIED NAUSEA. WAS ON 2L O2 VIA NC FOR SLEEP TO MAINTAIN SATURATION LEVEL GREATER THAN 90%, PT NOW AWAKE, SAT 99%, PUT PT ON RA.
--- NOTE | 2017-10-29 11:55 | NUR ---
PT REPORTED FEELING NAUSEATED, NO DRY HEAVING OR EMESIS. GAVE ZOFRAN 8 MG IV PRN. PT SITTING UP IN RECLINER, LEGS ELEVATED. PT ON RA, OXYGEN SATURATION LEVEL 95% PER CONTINUOUS PULSE OX. PT RATED PAIN TO ABDOMEN 5/10. REPORTED THAT HE JUST USED HAIR SPRING WINDER. DENIED OTHER NEEDS. PERSONAL SUPPLIES AND CALL LIGHT IN REACH. MOM AT SIDE.
--- NOTE | 2017-10-29 13:15 | NUR ---
PT REPORTED FEELING NAUSEATED WHEN HE TRIED TO GET UP OUT OF RECLINER TO USE THE BATHROOM, SO HE SAT BACK DOWN. PT REPORTS THAT NAUSEA CONTINUED AT REST, GAVE PHENERGAN 12.5 MG IV PRN. PT HAS COOL WASHCLOTH TO FOREHEAD. IS SITTING UP IN RECLINER, MOM IN ROOM.
--- NOTE | 2017-10-29 13:26 | NUR ---
NOTIFIED DR. SANTAMARIA THAT PT HAS BEEN DROWSY, SLEEPING IN RECLINER MUCH OF THIS SHIFT, AND THAT WHEN PT ATTEMPTS TO GET UP TO USE THE BATHROOM OR MOVE AROUND ROOM, PT REPORTS THAT HE BECOMES NAUSEATED. NOTIFIED DR. SANTAMARIA THAT PT RECIEVED PRN ZOFRAN THIS AM FOR NAUSEA, AND JUST RECENTLY RECIEVED PRN PHENERGAN FOR NAUSEA, AND THAT PT HAS NOT BEEN ABLE TO TOLERATE AMBULATION IN ROOM OR IN THE HALLS THUS FAR THIS SHIFT, PT REPORTS NAUSEA WITH ATTEMPTS TO GET UP. DR. SANTAMARIA NOTIFIED VIA TELEPHONE. NO NEW ORDERS AT THIS TIME.
--- NOTE | 2017-10-29 13:52 | NUR ---
PT SITTING IN CHAIR, WITH MOM BY HIS SIDE. PT MENTIONED THAT HE FELT PRETTY GOOD EXCEPT FOR NOT BEING ABLE TO HOLD ANYTHING DOWN. PT IS ALERT, ORIENTED AND DOING HIS BEST TO MAKE LIGHT OF THE SITUATION. HIS FATHER LEFT FOR BOISE, PT AND MOM REMAIN UNTIL DC. EXTENDED A BLESSING, WILL FOLLOW NEEDED
--- NOTE | 2017-10-29 15:33 | NUR ---
VS AND I&O'S TAKEN AND DOCUMENTED. PT STATES HE HAS NO NEEDS AT THIS TIME. INFORMED PT TO CALL IF HE NEEDS ANYTHING. CALL LIGHT IS IN REACH.
--- NOTE | 2017-10-29 16:55 | NUR ---
ASKED PT IF HE WOULD LIKE TO SHOWER. PT STATES "I REALLY DON'T FEEL UP FOR A SHOWER." PT ASKED IF HE COULD MAYBE DO ONE TOMORROW. INFORMED PT TO LET ME KNOW IF HE CHANGES HIS MIND. ICE PACK AND A COOL WASH CLOTH GIVEN TO PT. INFORMED PT TO CALL IF HE NEEDS ANYTHING. CALL LIGHT IS IN REACH.
--- NOTE | 2017-10-29 17:22 | NUR ---
PT REPORTED CONTINUED NAUSEA. NOTIFIED PT OF WHEN NEXT PRN ANTI NAUSEA MEDICATION IS AVAILABLE, PT HAS HAD NO EMESIS. ENCOUARGED INSENTIVE SPIROMETER USE. ALSO ENCOUARGED PT TO GET UP OUT OF BED TO AMBULATE. PT STATED THAT HE WOULD IF HIS NAUSEA RESOLVED SOME. EDUCATED PT THAT AMBULATION MAY IMPROVE HIS NAUSEA, AND HIS OVERALL RECOVERY. PT VERBALIZED UNDERSTANDING.
--- NOTE | 2017-10-29 17:49 | NUR ---
PT NOW IN BED, HOB ELEVATED. REPORTED NAUSEA HAD IMPROVED SOME BUT STILL PRESENT. GAVE ZOFRAN 8 MG IV PRN. PT REPORTED THAT WHEN HE TRANSFERED FROM RECLINER TO BED HE AMBULATED AND STOOD IN ROOM FOR APROXIMATELY 10 MINUTES, AND DID NOT HAVE WORSENING OF NAUSEA ASSOCIATED WITH THIS. PT HAS PERSONAL SUPPLIES AND CALL LIGHT IN REACH.
--- NOTE | 2017-10-29 18:03 | NUR ---
PT DROWSY TODAY, WITH INCREASED NAUSEA. PT MEDICATED FOR NAUSEA WITH ZOFRAN 8 MG IV PRN AT 1155 AND 1746, AND WITH PHENERGAN 12.5 MG IV PRN AT 1314. PT REPORTED INCREASE IN NAUSEA WITH MOVEMENT, AND HAD EPISODE OF DRY HEAVING AT APROXIMATELY 1305. PT DID NOT AMBULATE IN HALLS THUS FAR THIS SHIFT, REPORTED THAT HE DID NOT FEEL UP TO AMBULATING IN HALLS DUE TO INCREASE IN NAUSEA WITH ACTIVITY. EDUCATION REGARDING NEED FOR ACTIVITY/AMBULATION PROVIDED. PT DID STAY UP IN RECLINER FROM 0700 TO 1730. IS NOW IN BED WITH HOB ELEVATED. PT REPORTED THAT HE STOOD, AND AMBULATED IN ROOM FOR APROXIMATELY 10 MINUTES THIS EVENING, BUT DECLINED TO AMBULATE IN WALLACE AFTER THAT. HAS D5LR INFUSING AT 100 ML/HR. MORPHINE ELECTROPLATING LABORER, PT REPORTED THAT PAIN TO ABDOMEN IS CONTROLLED WELL WITH THIS. PT'S BOWEL TONES ARE HYPOACTIVE, AND PT HAS NOT YET PASSED GAS SINCE SURGERY. MIDLINE INCISION, AND SCOPE INCISION SITES WNL, CURT IN PLACE. PT TO HAVE BMP, CBC, MG, AND PHOS LABS DRAWN 10/30/[address] SANTAMARIA NOTIFIED OF PT'S REPORTS OF INCREASED NAUSEA, AND NO AMBULATION IN HALLS, NO NEW ORDERS AT THAT TIME.
--- NOTE | 2017-10-29 19:13 | NUR ---
PT VS AND I&O'S WERE TAKEN AND DOCUMENTED. PT REQUESTING MORE ICE PACKS. ICE PACKS WERE GIVEN. PT STATES HE IS GOING TO GET UP AND WALK. PT HAS NO OTHER NEEDS AT THIS TIME. CALL LIGHT IS IN REACH.
--- NOTE | 2017-10-29 20:29 | NUR ---
PT REPORTS NAUSEA WITH ACTIVITY, WAS UP AMBULATING IN HALLS X4 LAPS. PHENERGAN SLOW IVP ADMINISTERED TO LEFT AC IV. PT REQUESTS HARD CANDY. PT NOW HAS ACTIVE BT'S EXCEPT FOR LUQ WHICH REMAINS HYPOACTIVE. DR SANTAMARIA NOTIFIED OF PT'S S/SX'S AND REQUEST. NEW ORDER RECEIVED FOR TORADOL IV AND PER MD PT MAY BEGIN TO HAVE HARD CANDY/GUM.
--- NOTE | 2017-10-29 21:02 | NUR ---
PT WAS PROVIDED WITH HARD CANDY PER REQUEST AND TORADOL 30MG IV FOR PAIN. TWO COOL WASH CLOTHS PROVIDED PER PT REQUEST, PT APPLIES ICE TO ABD PRN. SCD'S IN PLACE TO BILAT CALFS. PT STATES NAUSEA HAS GONE AWAY "IT ONLY REALLY STARTS TO GET BAD WHEN I START TO MOVE AROUND.". CALL LIGHT IN REACH AND PT DENIES HAVING ANY FURHTER CONCERNS OR REQUESTS. PT'S MOTHER REMAINS AT BEDSIDE.
--- NOTE | 2017-10-29 22:50 | NUR ---
PT WAS UP AMBULATING 3 LAPS IN WALLACE WITH STEADY GAIT. PT ASSISTED WITH REAPPLYING SCD'S, ICE PROVIDED AND IV PUMP PLUGGED BACK INTO WALL. PT PROVIDED WITH CALL LIGHT. COOL WASH CLOTH PROVIDED. PT APPEARS COMFORTABLE. NO FURTHER REQUESTS OR CONCERNS VOICED.
--- NOTE | 2017-10-30 00:43 | NUR ---
PT RESTING IN BED CALL LIGHT IN REACH. PT PROVIDED WITH HARD CANDY PER REQUEST. ICE APPLIED TO ABDOMEN. ASSESSMENT PERFORMED.
--- NOTE | 2017-10-30 03:22 | NUR ---
PT RESTING IN BED ALERT TO VOICE, PT ASSITED UP TO BATHROOM WITH STANDBY ASSIST. PT VOIDS 300MLS CONCENTRATED YELLOW URINE. PT ASSISTED BACK INTO BED. PT STATES "I HAVEN'T NEEDED THE MORPHINE IN A WHILE I'M FEELING BETTER AFTER THAT TORADOL". CALL LIGHT AND ICE IN REACH AND PT DENIES ANY FURTHER CONCENRS OR REQUESTS.
--- NOTE | 2017-10-30 05:29 | NUR ---
pt resting in bed eyes closed and respirations even and unlabored. Pt appears to be sleeping comfortably. Pt alert to voice, cefepime now infusing. toradol administered slow ivp for 2/10 pain to abd. pt states "I haven't had to push the button for morphine nearly as mutch as I did last night. I think that toradol is helping and I don't feel nauseated either." new bag of maintenence fluids also hung at this time. call light and ice water in reach.
--- NOTE | 2017-10-30 06:29 | NUR ---
PT HAS HAD A GOOD NIGHT. NAUSEA HAS BEEN CONTROLLED WITH PRN IV PHENERGAN AND PAIN HAS BEEN WELL CONTROLLED WITH IV TORADOL AND JOB RECRUITER MORPHINE. PT NOW ABLE TO HAVE HARD CANDIES AND GUM PER DR SANTAMARIA. PT STILL VOIDING QS CONCENTRATED YELLOW OUTPUT. PT TOLORATES AMBULATING WITH ONLY STANDBY ASSIST AND IS TO BE ENCOURAGED TO WALK 4X DAILY. PT WENT ON 2 WALKS EARLY IN SHIFT. PT TOLORATES SCD'S, ICE TO ABD PRN.
--- NOTE | 2017-10-30 08:35 | NUR ---
MORNING ASSESSMENT AND MEDICATIONS DUE. PT RERPOTS NAUSEA. ZOFRAN GIVEN. PT REPORST 4/10 PAIN THAT IS OK. PT REMINDE TO USE SENIOR IT AUDITOR MORPHINE IF NEEDED. ASSESSMENT DONE. PT REPORTS A "SMALL FART" THIS AM. WOUND CDI, EDGES APROXIMATED. MD TO BEDSIDE TO ROUND WITH PT. PT UPDATED ON PLAN OF CARE. AFTER VISIT WITH MD. PT BEGINS VOMITING. PHENEGRAN GIVEN. MORNING MEDICATIONS GIVEN (SEE MAR). POTASSIUM INFUSING VIA AC PIV. FLAGYL GIVEN IN HAND PIV. PT RESTING WITH EYES CLOSED, RR = 14 BPM. AWAKENS TO VOICE. FAMILY AT BEDSIDE. BED RAILSUP. CALL LIGHT WITHIN REACH.
--- NOTE | 2017-10-30 09:21 | NUR ---
TOOL DRESSER PUMP PAUSED TO WEAN PT FROM TOOL DRESSER AND ENCOURAGE IV DILAUDID PER MD ORDER. PT UPDATED ON PAIN CONTROL PLAN. PT VERBALIZES UNDERSTANDING AND STATES HE WILL CALL RN NEXT TIME HE FEELS HE NEEDS PAIN MEDICATION. PT CURRENTLY RATES PAIN AT 3/10. PT DRIFTS BACK TO SLEEP, RR= 14 BPM. PAIN PUMP READS 24MG MORPHINE GIVEN.
--- NOTE | 2017-10-30 09:40 | NUR ---
pt call light on. PUMP ALARMING. THIS RN TO ROOM. INFUSION AND FLUSH COMPLETE. PIV ASSESSED. LINE INFUSING D5 LR AT 100ML/HR. PT REPORTS 2/10 PAIN AND STATES HE HAS NO REQUESTS OR COMPLAINTS AT THIS TIME.
--- NOTE | 2017-10-30 10:52 | NUR ---
iv abx due. THIS RN TO BEDSIDE. PT RESTING WITH EYES CLOSED RR = 14 BPM. IV ABX STARTED. PT REMAINS ASLEEP. BED RAILSUP. CALL LIGHT WITHIN REACH.
--- NOTE | 2017-10-30 11:14 | NUR ---
CALL LIGHT ON. PUMP ALARMING, FLAGYL INFUSION AND FLUSH COMPLETE. PUMP STOPPED AND TURNED OFF. PT RATES PAIN AT 2/10 AND STATES HE DOES NOT NEED PAIN MEDICATION AT THIS TIME. BED RAILSUP. CALL LIGHT WITHIN REACH.
--- NOTE | 2017-10-30 11:28 | NUR ---
THIS RN TO ROOM TO ASSIST PHYSICAL THERAPY. PT AMBULATES ONCE AROUDN UNIT WITH ASSISTANCE FROM THIS RN AND PHYSICAL THERAPIST. PT TO PHYSICAL THERAPY ROOM, SOB NOTED. PHYSICAL THERAPIST WORKING WITH PT.
--- NOTE | 2017-10-30 11:40 | NUR ---
PT STATED THAT HE WOULD SHOWER LATER. ACID DUMPER ADVISED HIM TO CALL WHEN HE IS READY SO IV SITES COULD BE COVERED.
--- NOTE | 2017-10-30 12:09 | NUR ---
FOCUSSED ASSESSMENT DUE. THIS RN TO BEDSIDE. PT REPROTS 06/02 PAIN. SEE MAR FOR MEDICATION GIVEN. PIVS SALINE LOCKED SO PT CAN SHOWER. PIVS COVERED BY INSIDE SALES ASSISTANT. PT UP TO RESTROOM TO VOID AND SHOWER. PT ENCOUARGED TO AMBULATE TODAY. CHART MADE ON WHITE BOARD. PT DEMONSTRATES USE OF BATHROOM CALL LIGHT. INSIDE SALES ASSISTANT IN ROOM DOING LINEN CHANGES.
--- NOTE | 2017-10-30 12:22 | NUR ---
PT IN SHOWER. LINENS CHANGED. CLEAN GOWN AND SOCKS LAID OUT.
--- NOTE | 2017-10-30 13:40 | NUR ---
PT SITTING IN BED, MENTIONED HIS MOTHER HAD STEPPED OUT FOR A MOMENT. I NOTICED HE DIDNOT HAVE ANYTHING TO READ, SAID HE WOULD LIKE SOME HUNTING OR FISHING MAGS TO READ. FOUND A COUPLE, HE THANKED ME. WILL FOLLOW NEEDED
--- NOTE | 2017-10-30 15:29 | NUR ---
PT BCK FROM AMBULATING 3 LAPS AROUND UNIT. PT REPORTS 4/10 PAIN. PT DENIES NAUSEA. PT REPORTS HAVING HAD A BM. PT REPORTS HAND PIV IS LEAKING. PIV ASSESSED. LEAKING AND PAIN NOTED. PIV DC'D PER PROTOCOL. NEW PIV STARTED IN RIGHT HAND. CEFEPIME INFUSION MOVED TO RIGHT HAND PIV. LEFT AC PIV SL SO PT "CAN BEND MY ARM." PT USING IS. MOTHER AT BEDSIDE. NO ADDITIONAL REQUESTS OR COMPLAINTS. PT HAS NOT BEEN USING FISHER LINE TODAY. ONLY DILAUDID (SEE MAR).
--- NOTE | 2017-10-30 16:54 | NUR ---
IV ABX DUE. THIS RN TO BEDSIDE. PT REPORTS 04/04 PAIN. PT DENIES NAUEA. PT ENCORUAGED TO AMBULATE. PT STATES "I PLAN TO IN A LITTLE BIT." PT REQUESTS A POPSICLE AND WOULD LIKE MD TO BE UPDATED. MD OFFICE CALLED. MD WILL CALL BACK WHEN AVALIABLE. PT RESTING IN CHAIR. CALL LIGTH WITHIN REACH. IV ABX STARTED.
--- NOTE | 2017-10-30 17:03 | NUR ---
PT POST OP DAY 4 FOR OPEN APPY. K RIDER GIVEN TODAY. MORPHINE CHILD WELFARE ASSISTANT OR IV DILAUDED. NO CHILD WELFARE ASSISTANT THIS SHIFT. DILAUDID GIVEN X2. ONE EPISODE OF N/V TODAY. NEW PIV IN RIGHT HAND. ENCOURAGE AMBULATION. PT USING CALL LIGHT APPROPRIATLY.
--- NOTE | 2017-10-30 18:35 | NUR ---
PT REQUESTS A POPSICAL AGAIN. CALLED. STATES PT CAN HAVE 1 POPSICLE Q 8 HOURS. ORDRES CHANGED. PT UP TO AMBULATE X3 AROUND UNIT. POPSICLE PROVIDED UPON RETURN TO ROOM. PT RESTING IN CHAIR. CALL LIGHT WITHIN REACH. MOTHER AT CHAIRSIDE.
--- NOTE | 2017-10-30 19:11 | NUR ---
PT CALL LIGHT ON. PT REPORTS 4/10 PAIN AND "A LITTLE NAUSEA." SEE MAR FOR MEDICATION GIVEN. CALL LIGHT WITHIN REACH. MOTHER AT BEDSIDE.
--- NOTE | 2017-10-30 21:34 | NUR ---
PT REPORTS NAUSEA AFTER GETTING UP TO USE RESTROOM. PHENERGAN 12.5MG IN 20MLS NS GIVEN SLOW IVP. PT NOW RESTING SUPINE IN BED, DENIES OTHER NEEDS/CONCERNS. CALL LIGHT IN REACH.
--- NOTE | 2017-10-30 23:07 | NUR ---
pt resting supine in bed, fresh 250mls of ice water provided. pt appears to be sleeping comfortably, [id number]. call light in reach.
--- NOTE | 2017-10-31 01:27 | NUR ---
IN TO HANG IV ABX, PT STATES HE IS NAUSEATED, VOMITS SMALL AMOUNT OF GREEN EMISIS SO ANTIEMETIC ADMINISTERED SLOW IVP. PT GIVEN COOL WASH CLOTH TO CLEAN FACE AND FRESH EMISIS BAG PROVIDED. PT ALSO WAS GIVEN PRN IV PAIN MEDICATIONS FOR BREAK THROUGH ABD PAIN. SCD'S IN PLACE AND WARM BLANKET PROVIDED. FRESH ICE ALSO GIVEN. CALL LIGHT IN REACH AND PT DENIES FURTHER CONCERNS OR REQUESTS.
--- NOTE | 2017-10-31 03:34 | NUR ---
PT RESTING SUPINE IN BED, EYES CLOSED AND RR 18, PT APPEARS TO BE SLEEPING COMFORTABLY. CALL LIGHT IN REACH.
--- NOTE | 2017-10-31 05:10 | NUR ---
IN TO ANSWERE CALL LOIGHT PT, VOMITING INTO EMISIS BAG AND ONTO GOWN. PHENERGAN 12.5MG ADMINSITERED. PT ALSO REPORTS INCREASED ABD PAIN SO IV DILAUDID 1MG ALSO ADMINISTERED. PT ASSISTED UP TO RESTROOM AND WAS PROVIDED WITH WARM WASH CLOTH NAD NEW GOWN. BEDDING ALSO CHANGED. CALL LIGHT IN REACH AND NO FURTHER NEEDS VOICED.
--- NOTE | 2017-10-31 06:07 | NUR ---
IN TO SEE PT, PT DENIES NAUSEA/PAIN. CALL LIGHT IN REACH. NO NEEDS VOICED.
--- NOTE | 2017-10-31 07:15 | NUR ---
BEDSIDE HANDOFF REPORT RECEIVED FROM CIGAR MAKER RN. PT RESTING IN BED. PT DENIES NEEDS AT THIS TIME.
--- NOTE | 2017-10-31 07:29 | NUR ---
PT HAD SEVERAL BOUTS OF EMISIS IN THE NIGHT WITH ABD PAIN. NAUSEA AND VOMITING COME ON SUDDENLY ALONG WITH ABD PAIN PER PT. PT'S SYMPTOMS CONTROLLED WITH IV PHENERGAN, ZOFRAN TORADOL AND DILAUDID. PT NO LONGER USING INSIDE TESTER. PT WAS UP AMBULATING 5 LAPS AROUND [place] THIS MORNING. PT VOIDS QS CONCENTRATED YELLOW URINE. ABDOMINAL SURGICAL INCISIONS REMAIN WELL APPROXIMATED WITH NO S/SX'S OF INFECTION.PT TOLORATES SCD'S AND IS 10X PER HOUR WHILE AWAKE. PT TRANSFERS WITH 1 PERSON SBA JUST TO MANAGE IV TUBING GETTING OUT OF BED AND THEN IS ABLE TO AMBULATE INDEPENDENTLY WITH SLOW BUT STEADY GAIT. BT'S REMAIN HYPOACTIVE BUT PT HAD 2X SMALL BM'S YESTERDAY.
--- NOTE | 2017-10-31 08:00 | NUR ---
PT RESTINGIN BED. PT RATING PAIN 2/10 AT THIS TIME, DENIES NAUSEA. PT ON ROOM AIR, LUNG SOUNDS CLEAR. BOWEL TONES HYPOACTIVE, TOLERATING CLEAR LIQUID. CMS INATCT, WITHOUT EDEMA. IV CEFEPIME INFUSING, D5LR AT 100 INFUSING, IV FLAGYL INFUSING. MIDLINE INCISION AND LAP SITES X2 WITH CURT IN PLACE, OPEN TO AIR, EDGES WELL APPROXIMATED, WITHOUT REDNESS OR DRAINAGE. PT REQUESTING TO REST THIS AM. PT DENIES OTHER NEEDS AT THIS TIME.
--- NOTE | 2017-10-31 08:10 | NUR ---
PATIENT RESTING IN BED, EYES CLOSED. NO OTHER NEEDS AT THIS TIME.
--- NOTE | 2017-10-31 10:40 | NUR ---
IV CEFEPIME INFUSING TO R HAND IV. PT RESTING IN BED. PT DENIES OTHER NEEDS AT THIS TIME.
--- NOTE | 2017-10-31 11:50 | NUR ---
PT AMBULATING IN [place]ALLACE INDEPENDENTLY.
--- NOTE | 2017-10-31 12:51 | NUR ---
PT SITTING IN BED WATCHING TV. HE MENTIONED THAT HIS MOTHER SPENT THE NIGHT AT A MOTEL FOR A BREAK. HE SEEMED FINE WITH THIS. NAUSEA NOT AN ISUE MUCH TODAY, STILL NOT ABLE TO SLEEP WELL. WILL CONTINUE TO FOLLOW NEEDED
--- NOTE | 2017-10-31 14:30 | NUR ---
PT SALINE LOCKED FOR SHOWER. IV X2 WRAPPED. PT INDEPENDENT FOR CARE, VERBALIZES UNDERSTANDING TO PULL SHOWER ASSIST IF NEEDED. PT DENIES OTHER NEEDS AT THIS TIME.
--- NOTE | 2017-10-31 16:01 | NUR ---
PT COMPLETED WITH SHOWER. IV FLUIDS RESTARTED, IV FLAGYL INFUSING. PT SITTING IN CHAIR. PT COMPLAINT OF PAIN 5/10 AND NAUSEA, PT GIVEMN 1 MG IV DILAUDID, 30 MG IV TORADOL, 8 MG IV ZOFRAN, ICE PACK TO ABD. ROOM CLEANED, BED LINENS CHANGED. PT ON ROOM AIR. BOWEL TONES ACTIVE. NO ACUTE CHANGES. PT DENIES OTHER NEEDS AT THIS TIME. MOTHER AT BEDSIDE.
--- NOTE | 2017-10-31 18:33 | NUR ---
PT HAD UNEVENTFUL DAY. PT ON ROOM AIR, LUNG SOUNDS CLEAR. PT WITH NAUSEA X1, GIVEN IV ZOFRAN, TOLERATING CLEAR <250/8HRS, BOWEL TONES ACTIVE, BM X2 TODAY. PT FEELS HUNGRY TODAY. IV FLUIDS D5LR AT 100, IV CEFEPIME, FLAGYL. PT INDEPENDENT IN ROOM/WALLACE, WALKED 3 TIMES TODAY. MIDLINE INCISION AND LAP SITES X3 OPEN TO AIR, EDGES WELL APPROXIMATED.
--- NOTE | 2017-10-31 18:50 | NUR ---
PATIENT RESTING IN BED, CALL LIGHT IN REACH. PATIENT STATES HE IS NOT IN ANY PAIN AT THIS TIME. NO OTHER NEEDS AT THIS TIME.
--- NOTE | 2017-10-31 19:50 | NUR ---
PATIENT'S PAIN IS UNDER CONTROL AND HE IS CURRENTLY WATCHING TV WITH HIS MOTHER. PATIENT RESQUESTED AN NEW WARM BLANKET AND HERNANDEZ NO OTHER NEED AT THIS TIME. CLL LIGHT IN REACH.
--- NOTE | 2017-10-31 21:30 | NUR ---
PATIENT GIVEN HIS PM MEDS AND 1MG PO DILAUDID SIVP, AND PATIENT BECAME NAUSEATED WITH HEAVES AFTER THIS AND WAS GIVEN 8MG IV ZOFRAN WHICH RELIEVED NAUSEA NAD PAIN AND ABD PAIN DECREASED FROM 5/10 TO 2/10. PATIENT TO ALL OTHER MEDS WITHOUT DIFFICULTY. PATIENT HAS NO OTHER NEEDS AT THIS TIME AND HIS CALL LIGHT IS IN REACH. BOWEL TONES ACTIVE AND LUNGS ARE CLEAR.
--- NOTE | 2017-10-31 22:19 | NUR ---
VITAL SIGNS, I&O DONE AND CHARTED.
--- NOTE | 2017-10-31 23:37 | NUR ---
PATIENT REMAINS HAING 2/10 ABD PAIN AT THIS TIME AND IS GOING TO TRY AND GET SOME SLEEP. PATIENT'S MOTHER JULIAN RECEIVED LINENS TO TRY AND [place] [facility] [place] NO OTHER NEEDS REQUESTED FRO PT OR MOTHER AT THIS TIME. LIGHT TURNED DOWN, CURAINS AND DOOR PULLED, AND CALL LIGHT IS IN REACH.
--- NOTE | 2017-11-01 01:10 | NUR ---
PATIENT HAD ANOTHER EPISODE OF NAUSEA AND VOMITTING OF 500MLS OF BILE LIKE FLUID. ABD PAIN IS 6/10. 12.5MG PROMETHAZINE IV IN 30MLS OF NS AND FAST RUNNING FLUID GIVEN AND NAUSEA SUBSIDED. 2 PO NORCO GIVENAND IV TORADOL AND PAIN CURRENTLY DOWN TO 4/10 FROM 6. PATIENT GOING TO TRY AND GET SOME SLEEP. PT'S MOTHER ASLEEP ON THE COUCH AND CALL LIGHT IS IN REACH.
--- NOTE | 2017-11-01 01:37 | NUR ---
PATIENT'S NAUSEA REMAINS GONE AND PAIN IS DOWN TO 2/10 AND PATIENT IS TRYING TO GO TO SLEEP AT THIS TIME. CALL LIGHT IS REACH.
--- NOTE | 2017-11-01 03:35 | NUR ---
PATIENT AWAKE AGAIN AND HAS NO BEEN GETTING MUCH SLEEP. UP AND AMBULATED TO THE BATHROOM AND WAS NAUSEATED ON RETURN AND 8MG IV ZOFRAN GIVEN WHICH RELIEVED NAUSEA AND PATIENT WENT BACK TO SLEEP. CALL LIGHT IN REACH.
--- NOTE | 2017-11-01 04:28 | NUR ---
PATIENT FINALLY RESTING QUIETLY, EYES CLOSED, RESPIRTIONS REGULAR AND EVEN AT A RATE OF 16. TV AND TABLET FINALLY TURNED OFF. SCD'D REMAIN IN PLACE THEY HAVE ALL NIGHT WHILE IN BED. PATIENT'S CALL LIGHT IS IN REACH.
--- NOTE | 2017-11-01 05:10 | NUR ---
PATIENT RESTING QUIETLY AT THIS TIME, EYES CLOSED, SNORING SOFTLY SUPINE AT A RATE OF 16BPM. CALL LIGHT IN REACH.
--- NOTE | 2017-11-01 06:37 | NUR ---
PATIENT HAS HAD A FAIRLY RESTLESS NIGHT PAIN HAS BEEN KEPT AT 6/10 OR BELOW WITH PO PAIN MEDS AND IV PAIN MEDS, HOWEVER PAIN IS OFTEN INCREASED PATIENT OFTEN GETS NAUSEATED AFTER AMBULATING TO THE BATHROOM. PATIENT HAD TO BE GIVEN 8MG OF ZOFRAN X 2 THROUGH THE NIGHT AND 12.5MG IV PHENERGAN X1. ALL WERE EFFECTIVE IN RELIEVING THE NAUSEA AND PATIENT IS VOIDING FINE AND HAS GOOD BOWEL TONES AND LUNGS SOUND GOOD. BOTH IV FLUSH FINE AND D5LR CONTINUES TO RUN AT 100MLS/HR. PATIENT IS CURRENTLY SLEEPING, EYES CLOSED, RESPIRATIONS REGULAR AND EVEN. CALL LIGHT IS IN REACH.
--- NOTE | 2017-11-01 08:12 | NUR ---
PT RESTING IN BED. PT REQUESTING PAIN MEDICATION, RATING PAIN 6/10, GIVEN TORADOL AND IV DILAUDID. PT ON ROOM AIR, LUNG SOUNDS CLEAR, DENIES SOB. BOWEL TONES ACTIVE, COMPLAINT OF NAUSEA, EMESIS 50 ML OF LIGHT GREEN CLEAR FLUID, GIVEN 12.5 MG PHENERGAN. IV FLUIDS INFUSING D5LR AT 100 ML/HR, IV FLAGYL INFUSING. CMS INTACT, WITHTOU EDEMA. PT REQUESTING TO REST, DISCUSSED PLAN OF CARE FOR THE DAY. PT DENIES OTHER NEEDS. MOTHER AT BEDSIDE.
--- NOTE | 2017-11-01 09:00 | NUR ---
CARE CONFERENCE AFTER MEETING WITH DR SANTAMARIA I WENT IN TO MEETI WITH PT AND HIS MOTHER. WE DISCUSSED WHAT DR SANTAMARIA HAD TOLD ME ABOUT HIS BOWEL BEGINING TO WAKE UP AND THE FACT THAT IT WAS A GANGRENOUS RUPTURED APPENDIX AND HE WOULD NEED A LONGER TIME TO HEAL THAN JUST YOUR NORMAL SIMPLE APPY. PT AND MOTHER STATED UNDERSTANDING AND HAD NO FURTHER QUESTIONS AT THIS TIME.
--- NOTE | 2017-11-01 11:21 | NUR ---
PT REQUESTING APPLE JUICE, 150 ML PROVIDED. PT REQUESTIGN PAIN MEDICATION, RATING PAIN 4/10, GIVEN 4 MG IV DILAUDID. PT DENIES OTHER NEEDS AT THIS TIME.
--- NOTE | 2017-11-01 12:24 | NUR ---
PT WALKING IN WALLACE WIHT MOTHER.
--- NOTE | 2017-11-01 14:20 | NUR ---
IV STARTED TO RIGHT FOREARM, 20G, LEFT AC IV DISCONTINUED. PT RECIEVEING FLAGYL, CEFEPIME, D5LR AT 100, COMPATABILITY CONFIRMED. PT DENIES OTHER NEEDS AT THIS TIME.
--- NOTE | 2017-11-01 14:52 | NUR ---
pt is sitting up in chair with feet elevated and call light in reach. pt did not need anything
--- NOTE | 2017-11-01 16:10 | NUR ---
IV CEFEPIME INFUSING. PT STATES PAIN 0/10 AT THIS TIME. PT ENCOURAGED TO WALK IN WALLACE. PT DENIES OTHER NEEDS AT THIS TIME.
--- NOTE | 2017-11-01 17:45 | NUR ---
PT ON ROOM AIR, LUNG SOUNDS CLEAR. PT INDEPENDENT, WALKING IN HALLS. PT PAIN WELL CONTROLLED WITH TORADOL AND IV DILAUDID, TRANSITIONED TO ORAL. IV FLUIDS DISCONTINUED, CONTINUE WITH CEFEPIME IV. PT ADVANCED TO REGULAR DIET, MONITOR FOR NAUSEA. PT VOIDING QS.
--- NOTE | 2017-11-01 20:00 | NUR ---
CHARGE NURSE ROUNDING NOTE:. WAS WALKING HALLWAYS EARLIER WITH MOTHER, TOLERATING WELL, BACK TO BED, IVF INFUSING, PT ON REGULAR DIET ATE 25% DIET. NO C/O AT THIS TIME, NO REQUESTS.
--- NOTE | 2017-11-01 21:00 | NUR ---
PATIENT WAS HAVING C/O PAIN AND NAUSEA. 8MG ZOFRAN IV GIVEN AND ONCE NAUSEA HAD RESOLVED PO MEDICATIONS GIVEN. CALL LIGHT IN REACH.
--- NOTE | 2017-11-01 21:06 | NUR ---
PT WAS MEDICATED AT 2018 WITH ZOFRAN FOR N/V. HAD 1000CC EMESIS WITH UNDIGESTED FOOD, YELLOW-GREEN COLORED. DID OWN TOWEL BATH, BRUSHED TEETH. LINEN CHANGED, CLEAN GOWN AND BEDDING. TOLERATED WELL. BACK TO BED, WARM BLANKET GIVEN, CALL LIGHT AND FLUIDS AT BEDSIDE, MOTHER IN ROOM, NO OTHER REQUESTS
--- NOTE | 2017-11-01 22:57 | NUR ---
PATIENT'S NAUSEA REMAINS GONE AND PAIN IS 2/10. PATIENT SAYS HE FEELS COMFORTABLE AND GOING TO TRY AND GET SOLME SLEEP. LIGHTS TURNED DOWN AND CALL LIGHT IN REACH.
--- NOTE | 2017-11-02 00:21 | NUR ---
PATIENT RESTING QUIETLY ON HIS RIGHT SIDE. RESPIRATIONS EVEN AND REGULAR AT 16BPM. EYES CLOSED. CALL LIGHT IN REACH. NO S/S OF DISTRESS.
--- NOTE | 2017-11-02 02:02 | NUR ---
PATIENT GIVEN 8MG ZOFRAN IV FOR DRY HEAVES AND THEN SOME BILE COLORED EMESIS. PATIENT SAYS," I AM NOT REALLY NAUSEATED THE PAIN JUST COMES ON AND I HEAVE, NEVER REALLY NAUSEATED." 2 NORCO PO GIVEN RIGHT AFTER ZOFRAN AND KEPT DOWN WITHOUT DIFFICULTY. PATIENT THEN ASKED FOR A NEW FULL GLASS OF ICE WATER, WHICH WAS GIVEN. PATRICIA'S CALL LIGHT IS IN REACH.
--- NOTE | 2017-11-02 03:36 | NUR ---
PATIENT REMAINS RESTNG QUIETLY. IV ANTIBIOTICS INFUSING. PATIENT'S EYES ARE CLOSED, RESPIRATIOONS EVEN AND REGULAR. CALL LIGHT IN REACH.
--- NOTE | 2017-11-02 04:49 | NUR ---
PATIENT STARTING TO C/O OF 10 ABD PAIN AGAIN WITH NO N/V. PATIENT MEDICATED WITH TYLENOL AND MOTRIN. PATIENT SCD'S REMAIN IN PLACE AND IV STILL PATENT RUNNING ANTIBIOTICS TO BE SL WHEN FINISHED. PATIENT'S CALL LIGHT IN REACH.
--- NOTE | 2017-11-02 06:16 | NUR ---
VITALS AND I&OS DONE AND CHARTED. BEDSIDE TABLE AND CALL LIGHT WITHIN REACH. PT SAYS HE DOESN'T NEED ANYTHING AT THIS TIME.
--- NOTE | 2017-11-02 06:29 | NUR ---
PATIENT HAS SLEPT BETTER TONIGHT THAT LAST NIGHT. FAIRLY INDEPENDENT IN THE ROOM AND WALKS INTO THE BATHROOM ON HIS OWN WITH HIS IV PUMP. IV NEEDS TO BE SALINE LOCKED WHEN ANTIBIOTIC FINISHES AT 0730. PAIND HAD BEEN FAIRLY WELL CONTROLLED WITH NORCO, MOTRIN, AND TYLENOL. PATIENT DID HAVE ZOFRAN 8MG 2 TIMES THIS SHIFT FOR VOMITTING, BUT SAYS HE WAS NOT ACTUALLY NAUSEATED HE JUST VOMITTED WHEN HE STARTED HAVING PAIN. POSSIBLY PATIENT CAN BE SWITCHED TO PO ZOFRAN OR SL TODAY. TAKING PO FLUIDS WELL. LUNGS CLEAR, BOWEL TONES ACTIVE, AND SURGICAL INCISION LOOKS GREAT. REPORT GIVEN TO JAM SPENCER. CALL LIGHT IS IN REACH.
--- NOTE | 2017-11-02 07:46 | NUR ---
BEDSIDE REPORT RECEIVED FROM TJ POLK. WHITE BOARD UPDATED. PATIENT AWAKE IN BED UPON INITIALLY ENTERING ROOM. NORCO 2 TABS PROVIDED PER PATIENT REQUEST FOR 4/10 PAIN IN ABDOMEN. INCISION C/D/I AND OPEN TO AIR. SET UP PATIENT FOR SHOWER. SALINE LOCKED BY SHANTA POLK. BREAKFAST ORDERED. NO NEEDS AT THIS TIME. MOTHER AT BEDSIDE.
--- NOTE | 2017-11-02 08:08 | NUR ---
PATIENT RESTING IN BEDSIDE RECLINER, EATING BREAKFAST. FAMILY IN ROOM. PATIENT SET UP FOR A SHOWER BY RN AND WILL CALL WHEN READY. NO OTHER NEEDS AT THIS TIME.
--- NOTE | 2017-11-02 12:51 | NUR ---
pt had brown emesis of 500ml after zofran given. ate 90% of lunch. no nausea now. patient up in halls ambulating now.
--- NOTE | 2017-11-02 13:16 | NUR ---
PT IS SITTING IN CHAIR, MOTHER BY HIS SIDE. HE IS EXCITED-HE WAS ABLE TO EAT REAL FOOD THIS MORNING AND KEPT IT DOWN. HOPES TO DO THE DAME FOR LUNCH. EDDY(ASSOCIATE PARTNER) STOPPED IN WHILE I WAS PRESENT. JOINED ME IN VISITING PT AND WELCOMING HIM. POSITIVE MOMENT. EXTENDED A BLESSING, WILL FOLLOW NEEDED
[2017-11-02] MEDS ORDERED: IBUPROFEN600 MG PO (14:44)
[2017-11-02] MEDS ORDERED: HYDROCODON-ACE1 EA10 PO (14:44)
[2017-11-02] MEDS ORDERED: PANTOPRAZOLE SO40 MG PO (14:45)
[2017-11-02] MEDS ORDERED: MAPAP325 MG PO (14:45)
== END 2017-11-02 15:45 | disposition home or self-care (01) | DRG 340 ==
LOC: ED 17:25 → MS 19:53
PROVIDERS: ADMIT Colon & Rectal Surgery
PROC: 0DJD4ZZ Inspection of Lower Intestinal Tract, Percutaneous Endoscopic Approach (ICD-10-PCS; 2017-10-26)
PROC: 0DTJ0ZZ Resection of Appendix, Open Approach (ICD-10-PCS; principal; 2017-10-26 08:00)
DX: K35.2 Acute appendicitis with generalized peritonitis (principal); K38.1 Appendicular concretions; E83.39 Other disorders of phosphorus metabolism; J45.909 Unspecified asthma, uncomplicated; E66.9 Obesity, unspecified; Z68.39 Body mass index [BMI] 39.0-39.9, adult; Z88.0 Allergy status to penicillin; Z79.899 Other long term (current) drug therapy; Z53.31 Laparoscopic surgical procedure converted to open procedure
CPT/HCPCS: 00840; 36415; 74177; 80048; 80053; 81001; 82150; 83690; 83735; 84100; 85025; 96361; 96374; 96375; 99285; J0692; J1170; J1644; J1885; J2250; J2270; J2405; J2550; J2704; J2765; J3010; J3480; J7030; J7120; Q9967